=== PATIENT | male | born 1955 | race Caucasian/White ===

== ENCOUNTER 2021-08-05 18:40 | Emergency (ER) | payer OTHER, MEDICAID ==
[~2021-08-05] VITALS: Ht 170.2 cm; Wt 62.1 kg
[~2021-08-05 18:40] MED LIST: ? ANTIDEPRESSANT; AMLODIPINE BESYL5 M1; AMLODIPINE PO; ASA81BEC PO; ASPIR 8181 MG PO; CARDIZEM; CATAPRES0.1 MG PO; CELEXA40 MG PO; CHANTIX1 MG PO; CIPRO500 MG PO; CLONIDINE; CLONIDINE HCL0.2 M2 GT; CLONIDINE HCL0.3 M2 PO; CLONIDINE HCL0.3 M3 PO; COUMADIN 2 MG TA2 M1 PO; COUMADIN 2.5MG2.5 M1 PO; COUMADIN 5 MG TA5 M1 PO; DILTIAZEM ER300 MG PO; ENOXAPARIN80 MG/0.1 SUBQ; FLAGYL500 MG PO; HYDROCHLOROTHIA25 M1 PO; HYDROCODONE-AP1 EAC6 PO; INDERAL40 MG PO; LIPITOR 20 MG T20 M1 PO; LISINOPRIL10 MG PO; LOVENOX80 MG/0.8 SQ; MAXZIDE-25 MG1 EACH PO; NEXIUM40 MG PO; NITROGLYCERIN0.4 MG PO; NORVASC10 MG PO; PLAVIX 75 MG TA75 M1 PO; PROPRANOLOL 4040 M1 PO; QUINU10 PD; SIMVASTATIN80 MG PO; TRIAMTERENE-HC1 EAC1 PO; TYLENOL325 MG PO; ZESTRIL10 MG PO; [UNRECOGNIZED DRUG - REMARK]
[2021-08-05] MEDS ORDERED: ELIQUIS2.5 MG PO (18:56)
[2021-08-05] MEDS ORDERED: OXYCONTIN10 M1 PO (18:56)
[2021-08-05 21:00] VITALS: BP 122/59
== END 2021-08-05 21:01 | disposition home or self-care (01) ==
LOC: M.ERS 18:40
DX: S16.1XXA Strain of muscle, fascia and tendon at neck level, initial encounter (principal); S09.90XA Unspecified injury of head, initial encounter; I10 Essential (primary) hypertension; F17.210 Nicotine dependence, cigarettes, uncomplicated; Z86.73 Personal history of transient ischemic attack (TIA), and cerebral infarction without residual deficits; Z90.5 Acquired absence of kidney; Z95.5 Presence of coronary angioplasty implant and graft; Z79.899 Other long term (current) drug therapy; Z79.82 Long term (current) use of aspirin; Z88.8 Allergy status to other drugs, medicaments and biological substances; Z88.5 Allergy status to narcotic agent; W05.0XXA Fall from non-moving wheelchair, initial encounter; Y93.89 Activity, other specified; Y92.89 Other specified places as the place of occurrence of the external cause; Y99.8 Other external cause status